=== PATIENT | male | born 1955 | race Caucasian/White ===

== ENCOUNTER 2019-02-11 22:17 | Emergency (ER) | payer OTHER ==
[~2019-02-11] VITALS: Ht 182.9 cm; Wt 82.0 kg
[2019-02-11 23:29] LABS: ALANINE AMINOTRANSFERASE 35 U/L (12-78); ALBUMIN 4.1 G/DL (3.4-5.0); ALBUMIN/GLOBULIN RATIO 1.2 (1.1-1.5); ALKALINE PHOSPHATASE 98 IU/L (46-116); ANION GAP 11 (8-16); ASPARTATE AMINO TRANSFERASE 19 U/L (10-37); BILIRUBIN,TOTAL 0.3 MG/DL (0.1-1.0); BLOOD UREA NITROGEN 14 MG/DL (7-18); BUN/CREATININE RATIO 10.4 (5.4-32.0); CALCIUM 10.5 MG/DL (8.5-10.1); CHLORIDE 106 MMOL/L (99-107); CREATININE 1.34 MG/DL (0.60-1.10); GLUCOSE 115 MG/DL (70-104); POTASSIUM 3.5 MMOL/L (3.5-5.1); SODIUM 142 MMOL/L (135-145); TOTAL CARBON DIOXIDE 24.6 MMOL/L (24-32); TOTAL PROTEIN 7.5 G/DL (6.4-8.2); eGFR 54 ML/MIN
[2019-02-11 23:31] LABS: PARTIAL THROMBOPLASTIN TIME 29 SECONDS (22-32)
[2019-02-11] MEDS ORDERED: LISI1TAB11 PO (23:31)
[2019-02-11] MEDS ORDERED: DICL25TA2 (23:32)
[2019-02-11 23:37] LABS: BASOPHILS # (AUTO) 0.1 X10'3 (0-0.2); BASOPHILS % (AUTO) 0.9 % (0-1); EOSINOPHILS # (AUTO) 0.3 X10'3 (0-0.9); EOSINOPHILS % (AUTO) 4.9 % (0-6); HEMATOCRIT 47.1 % (42.0-52.0); HEMOGLOBIN 16.2 g/dl (14.0-17.9); LYMPHOCYTES # (AUTO) 2.2 X10'3 (1.1-4.8); LYMPHOCYTES % (AUTO) 30.9 % (21-51); MEAN CORPUSCULAR HEMOGLOBIN 29.8 PG (27.0-31.0); MEAN CORPUSCULAR HGB CONC 34.5 g/dL (33.0-36.5); MEAN CORPUSCULAR VOLUME 86.5 FL (78-98); MEAN PLATELET VOLUME 8.5 FL (7.4-10.4); MONOCYTES # (AUTO) 0.6 X10'3 (0-0.9); MONOCYTES % (AUTO) 8.4 % (2-12); NEUTROPHILS # (AUTO) 3.9 X10'3 (1.8-7.7); NEUTROPHILS % (AUTO) 54.9 % (42-75); PLATELET COUNT 235 X10'3 (140-440); RED BLOOD COUNT 5.44 X10'6 (4.70-6.10); RED CELL DISTRIBUTION WIDTH 13.5 % (11.5-14.5)
--- NOTE | 2019-02-12 00:26 | NUR ---
Matthew GARCIA AT BEDSIDE. STABLE VS.
[2019-02-12] MEDS ORDERED: mag hydrox/Alum hydrox/simeth 30ml oral suspension PO ONE (00:35)
[2019-02-12] MEDS ORDERED: LIDOcaine Viscous 15ml cup PO ONE (00:35)
[2019-02-12] MEDS ORDERED: sucralfate 1 gm tablet PO ONE (00:35)
[2019-02-12] MEDS ORDERED: famotidine 20mg tablet PO ONE (00:35)
[2019-02-12 01:14] VITALS: BP 109/86
== END 2019-02-12 01:18 | disposition home or self-care (01) ==
LOC: ER 22:17
DX: R07.89 Other chest pain (principal); I10 Essential (primary) hypertension; Z79.899 Other long term (current) drug therapy
CPT/HCPCS: 36415; 71045; 80053; 84484; 85025; 85610; 85730; 93005; 99284

== ENCOUNTER 2019-02-21 07:14 | Outpatient (CLI) | payer OTHER ==
[~2019-02-21 07:14] MED LIST: DICL25TA2; LISI1TAB11 PO
[2019-02-21 07:55] LABS: ALANINE AMINOTRANSFERASE 34 U/L (12-78); ALBUMIN 4.2 G/DL (3.4-5.0); ALBUMIN/GLOBULIN RATIO 1.3 (1.1-1.5); ALKALINE PHOSPHATASE 83 IU/L (46-116); ANION GAP 8 (8-16); ASPARTATE AMINO TRANSFERASE 18 U/L (10-37); BILIRUBIN,TOTAL 0.6 MG/DL (0.1-1.0); BLOOD UREA NITROGEN 11 MG/DL (7-18); BUN/CREATININE RATIO 11.7 (5.4-32.0); CALCIUM 10.3 MG/DL (8.5-10.1); CHLORIDE 105 MMOL/L (99-107); CHOL/HDL RATIO 3.3 (0.00-4.99); CHOLESTEROL 189 MG/DL (0-200); CREATININE 0.94 MG/DL (0.60-1.10); GLUCOSE 101 MG/DL (70-104); HDL CHOLESTEROL 57 MG/DL (35-60); LDL CHOLESTEROL 115 MG/DL (50-100); POTASSIUM 3.8 MMOL/L (3.5-5.1); SODIUM 142 MMOL/L (135-145); TOTAL CARBON DIOXIDE 29.5 MMOL/L (24-32); TOTAL PROTEIN 7.5 G/DL (6.4-8.2); TRIGLYCERIDES 102 MG/DL (20-135); eGFR 81 ML/MIN
== END 2019-02-21 23:59 | disposition home or self-care (01) ==
LOC: LAB 07:14
PROVIDERS: ATTEND Family Medicine
DX: Z12.5 Encounter for screening for malignant neoplasm of prostate (principal); E78.5 Hyperlipidemia, unspecified; I10 Essential (primary) hypertension; Z87.891 Personal history of nicotine dependence
CPT/HCPCS: 36415; 80053; 80061; 84153

== ENCOUNTER 2021-01-13 11:23 | Emergency (ER) | payer BC, OTHER ==
[~2021-01-13] VITALS: Ht 182.9 cm; Wt 84.5 kg
[~2021-01-13 11:23] MED LIST changes: -LISI1TAB11 PO; +LISI1TAB51 PO
[2021-01-13 12:03] LABS: BASOPHILS # (AUTO) 0.1 X10'3 (0-0.2); BASOPHILS % (AUTO) 0.7 % (0-1); EOSINOPHILS # (AUTO) 0.5 X10'3 (0-0.9); EOSINOPHILS % (AUTO) 6.3 % (0-6); HEMATOCRIT 42.8 % (42.0-52.0); HEMOGLOBIN 14.6 g/dl (14.0-17.9); LYMPHOCYTES # (AUTO) 2.2 X10'3 (1.1-4.8); LYMPHOCYTES % (AUTO) 28.6 % (21-51); MEAN CORPUSCULAR HEMOGLOBIN 30.1 PG (27.0-31.0); MEAN CORPUSCULAR HGB CONC 34.2 g/dL (33.0-36.5); MEAN CORPUSCULAR VOLUME 87.9 FL (78-98); MONOCYTES # (AUTO) 0.7 X10'3 (0-0.9); MONOCYTES % (AUTO) 8.4 % (2-12); NEUTROPHILS # (AUTO) 4.4 X10'3 (1.8-7.7); PLATELET COUNT 239 X10'3 (140-440); RED BLOOD COUNT 4.87 X10'6 (4.70-6.10); RED CELL DISTRIBUTION WIDTH 13.6 % (11.5-14.5); WHITE BLOOD COUNT 7.8 X10'3 (4.5-11.0)
[2021-01-13] MEDS ORDERED: normal saline 1000ML IV soln IVB ONE (12:05)
[2021-01-13] MEDS ORDERED: magnesium 2GM in 50ml NS 50 ML IV ONE (12:05)
[2021-01-13] MEDS ORDERED: diltiazem 5mg/ml 5ml inj. IV ONE (12:05)
[2021-01-13 12:20] LABS: ALANINE AMINOTRANSFERASE 41 U/L (12-78); ALBUMIN/GLOBULIN RATIO 1.2 (1.1-1.5); ALKALINE PHOSPHATASE 73 IU/L (46-116); ANION GAP 10 (8-16); ASPARTATE AMINO TRANSFERASE 25 U/L (10-37); BILIRUBIN,TOTAL 0.5 MG/DL (0.1-1.0); BLOOD UREA NITROGEN 16 MG/DL (7-18); BUN/CREATININE RATIO 15.4 (5.4-32.0); CALCIUM 10.2 MG/DL (8.5-10.1); CHLORIDE 106 MMOL/L (99-107); CREATININE 1.04 MG/DL (0.60-1.10); GLUCOSE 109 MG/DL (70-104); POTASSIUM 3.8 MMOL/L (3.5-5.1); SODIUM 142 MMOL/L (135-145); TOTAL CARBON DIOXIDE 25.6 MMOL/L (24-32); TOTAL PROTEIN 7.3 G/DL (6.4-8.2); eGFR 72 ML/MIN
[2021-01-13] MEDS ORDERED: metoprolol succinate 25mg (24-HOUR) SR. Tablet PO STA (13:12)
[2021-01-13 13:18] LABS: MAGNESIUM 2.3 MG/DL (1.5-2.4)
[2021-01-13 15:52] VITALS: BP 127/95
== END 2021-01-13 15:53 | disposition home or self-care (01) ==
LOC: ER 11:24
DX: I48.0 Paroxysmal atrial fibrillation (principal); R00.2 Palpitations; R42 Dizziness and giddiness; R11.0 Nausea; I10 Essential (primary) hypertension; Z79.899 Other long term (current) drug therapy
CPT/HCPCS: 36415; 71045; 80053; 83735; 83880; 84443; 84484; 85025; 93005; 96365; 96366; 96375; 99285; J3475; J7030; J3490

== ENCOUNTER 2021-01-17 14:49 | Emergency (ER) | payer BC ==
[~2021-01-17] VITALS: Ht 182.9 cm; Wt 56.0 kg
[2021-01-17 15:53] LABS: BASOPHILS # (AUTO) 0.1 X10'3 (0-0.2); BASOPHILS % (AUTO) 1.1 % (0-1); EOSINOPHILS # (AUTO) 0.5 X10'3 (0-0.9); EOSINOPHILS % (AUTO) 7.1 % (0-6); HEMATOCRIT 42.9 % (42.0-52.0); HEMOGLOBIN 14.5 g/dl (14.0-17.9); LYMPHOCYTES # (AUTO) 1.9 X10'3 (1.1-4.8); LYMPHOCYTES % (AUTO) 28.5 % (21-51); MEAN CORPUSCULAR HEMOGLOBIN 30.1 PG (27.0-31.0); MEAN CORPUSCULAR HGB CONC 33.8 g/dL (33.0-36.5); MEAN PLATELET VOLUME 7.9 FL (7.4-10.4); MONOCYTES # (AUTO) 0.6 X10'3 (0-0.9); MONOCYTES % (AUTO) 8.5 % (2-12); NEUTROPHILS # (AUTO) 3.6 X10'3 (1.8-7.7); NEUTROPHILS % (AUTO) 54.8 % (42-75); PLATELET COUNT 232 X10'3 (140-440); RED BLOOD COUNT 4.82 X10'6 (4.70-6.10); WHITE BLOOD COUNT 6.6 X10'3 (4.5-11.0)
[2021-01-17 16:17] LABS: ALANINE AMINOTRANSFERASE 36 U/L (12-78); ALBUMIN 3.9 G/DL (3.4-5.0); ALBUMIN/GLOBULIN RATIO 1.1 (1.1-1.5); ALKALINE PHOSPHATASE 81 IU/L (46-116); ANION GAP 9 (8-16); ASPARTATE AMINO TRANSFERASE 18 U/L (10-37); BILIRUBIN,TOTAL 0.4 MG/DL (0.1-1.0); BLOOD UREA NITROGEN 16 MG/DL (7-18); BUN/CREATININE RATIO 16.5 (5.4-32.0); CHLORIDE 108 MMOL/L (99-107); CREATININE 0.97 MG/DL (0.60-1.10); GLUCOSE 107 MG/DL (70-104); POTASSIUM 4.3 MMOL/L (3.5-5.1); SODIUM 144 MMOL/L (135-145); TOTAL CARBON DIOXIDE 27.3 MMOL/L (24-32); TOTAL PROTEIN 7.3 G/DL (6.4-8.2); eGFR 78 ML/MIN
[2021-01-17 16:33] VITALS: BP 132/70
== END 2021-01-17 16:34 | disposition home or self-care (01) ==
LOC: ER 14:49
DX: I48.0 Paroxysmal atrial fibrillation (principal); I10 Essential (primary) hypertension; Z79.899 Other long term (current) drug therapy
CPT/HCPCS: 36415; 71045; 80053; 84484; 85025; 93005; 99285

== ENCOUNTER 2021-01-21 08:27 | Outpatient (CLI) | payer BC ==
[2021-01-21 08:59] LABS: BASOPHILS # (AUTO) 0.1 X10'3 (0-0.2); BASOPHILS % (AUTO) 1.5 % (0-1); EOSINOPHILS # (AUTO) 0.5 X10'3 (0-0.9); EOSINOPHILS % (AUTO) 8.1 % (0-6); HEMATOCRIT 41.9 % (42.0-52.0); HEMOGLOBIN 14.2 g/dl (14.0-17.9); LYMPHOCYTES # (AUTO) 1.7 X10'3 (1.1-4.8); LYMPHOCYTES % (AUTO) 29.3 % (21-51); MEAN CORPUSCULAR HEMOGLOBIN 30.1 PG (27.0-31.0); MEAN CORPUSCULAR HGB CONC 33.9 g/dL (33.0-36.5); MEAN CORPUSCULAR VOLUME 88.8 FL (78-98); MEAN PLATELET VOLUME 7.8 FL (7.4-10.4); MONOCYTES # (AUTO) 0.6 X10'3 (0-0.9); MONOCYTES % (AUTO) 10.8 % (2-12); NEUTROPHILS # (AUTO) 2.9 X10'3 (1.8-7.7); NEUTROPHILS % (AUTO) 50.3 % (42-75); PLATELET COUNT 218 X10'3 (140-440); RED BLOOD COUNT 4.72 X10'6 (4.70-6.10); RED CELL DISTRIBUTION WIDTH 13.9 % (11.5-14.5); WHITE BLOOD COUNT 5.8 X10'3 (4.5-11.0)
[2021-01-21 09:14] LABS: CLARITY,URINE CLEAR (Clear); COLOR,URINE YELLOW (Yellow); GLUCOSE, URINE NEGATIVE (Neg); KETONES,URINE NEGATIVE (Neg); LEUKOCYTE ESTERASE ,URINE NEGATIVE (Neg); NITRITES, URINE NEGATIVE (Neg); OCCULT BLOOD,URINE NEGATIVE (Neg); PROTEIN,URINE NEGATIVE (Neg); UROBILINOGEN,URINE 0.2 E.U/dL (0.2-1.0)
[2021-01-21 09:19] LABS: UA COLLECTION TYPE CLN CATCH MIDSTREAM
[2021-01-21 09:23] LABS: ALANINE AMINOTRANSFERASE 40 U/L (12-78); ALBUMIN/GLOBULIN RATIO 1.2 (1.1-1.5); ALKALINE PHOSPHATASE 67 IU/L (46-116); ANION GAP 9 (8-16); ASPARTATE AMINO TRANSFERASE 22 U/L (10-37); BILIRUBIN,TOTAL 0.5 MG/DL (0.1-1.0); BLOOD UREA NITROGEN 15 MG/DL (7-18); CALCIUM 10.5 MG/DL (8.5-10.1); CHLORIDE 105 MMOL/L (99-107); CHOL/HDL RATIO 4.1 (0.00-4.99); CHOLESTEROL 210 MG/DL (0-200); GLUCOSE 85 MG/DL (70-104); HDL CHOLESTEROL 51 MG/DL (35-60); LDL CHOLESTEROL 140 MG/DL (50-100); POTASSIUM 4.3 MMOL/L (3.5-5.1); SODIUM 142 MMOL/L (135-145); TOTAL CARBON DIOXIDE 28.3 MMOL/L (24-32); TOTAL PROTEIN 7.3 G/DL (6.4-8.2); TRIGLYCERIDES 147 MG/DL (20-135); eGFR 75 ML/MIN
[2021-01-22 13:41] LABS: MICROALB/CRT, RATIO <11 mg/g creat (0-29)
== END 2021-01-21 23:59 | disposition home or self-care (01) ==
LOC: LAB 08:27
PROVIDERS: ATTEND Family Medicine
DX: Z00.01 Encounter for general adult medical examination with abnormal findings (principal)
CPT/HCPCS: 36415; 80053; 80061; 81003; 82043; 82570; 84439; 84443; 85025

== ENCOUNTER 2021-02-16 10:36 | Outpatient (CLI) | payer BC | END 2021-02-16 23:59 | disposition home or self-care (01) | LOC: CARD DIAG 10:36 | PROVIDERS: ATTEND Nurse Practitioner Family | DX: I36.1 Nonrheumatic tricuspid (valve) insufficiency (principal); I48.91 Unspecified atrial fibrillation | CPT/HCPCS: 93306 ==

== ENCOUNTER 2021-03-08 07:42 | Outpatient (CLI) | payer BC ==
[2021-03-08] VITALS (7 sets, daily range): BP systolic 109–125; BP diastolic 69–81
[~2021-03-08] VITALS: Ht 182.9 cm; Wt 86.2 kg
[2021-03-08] MEDS ORDERED: regadenoson 0.4mg/5ml syringe IV ONE (08:40)
[2021-03-08] MEDS ORDERED: nitroGLYCERIN 0.4mg SUBLingual tab SL PRN (08:40)
[2021-03-08] MEDS ORDERED: normal saline 500ml IV soln 500 ML IV ONE (08:40)
[2021-03-08] MEDS ORDERED: aminophylline 250mg/10ml inj. IV PRN (08:40)
== END 2021-03-08 23:59 | disposition home or self-care (01) ==
LOC: RAD 07:42
PROVIDERS: ATTEND Internal Medicine Interventional Cardiology
DX: I48.91 Unspecified atrial fibrillation (principal)
CPT/HCPCS: 78452; 93017; A9500; J2785; J7040

== ENCOUNTER 2021-05-25 07:25 | Outpatient (CLI) | payer BC ==
[2021-05-25 09:04] LABS: CHOL/HDL RATIO 3.9 (0.00-4.99); CHOLESTEROL 189 MG/DL (0-200); HDL CHOLESTEROL 49 MG/DL (35-60); LDL CHOLESTEROL 118 MG/DL (50-100); TRIGLYCERIDES 96 MG/DL (20-135)
== END 2021-05-25 23:59 | disposition home or self-care (01) ==
LOC: LAB 07:25
PROVIDERS: ATTEND Family Medicine
DX: E78.5 Hyperlipidemia, unspecified (principal)
CPT/HCPCS: 36415; 80061

== ENCOUNTER 2021-12-09 10:58 | Outpatient (CLI) | payer BC ==
[2021-12-09 12:10] LABS: BASOPHILS # (AUTO) 0.1 X10'3 (0-0.2); BASOPHILS % (AUTO) 0.8 % (0-1); EOSINOPHILS # (AUTO) 0.3 X10'3 (0-0.9); EOSINOPHILS % (AUTO) 4.2 % (0-6); HEMATOCRIT 43.6 % (42.0-52.0); HEMOGLOBIN 14.8 g/dl (14.0-17.9); LYMPHOCYTES # (AUTO) 1.8 X10'3 (1.1-4.8); LYMPHOCYTES % (AUTO) 23.8 % (21-51); MEAN CORPUSCULAR HEMOGLOBIN 29.9 PG (27.0-31.0); MEAN CORPUSCULAR HGB CONC 33.8 g/dL (33.0-36.5); MEAN CORPUSCULAR VOLUME 88.3 FL (78-98); MEAN PLATELET VOLUME 8.3 FL (7.4-10.4); MONOCYTES # (AUTO) 0.8 X10'3 (0-0.9); MONOCYTES % (AUTO) 10.2 % (2-12); NEUTROPHILS # (AUTO) 4.7 X10'3 (1.8-7.7); PLATELET COUNT 253 X10'3 (140-440); RED BLOOD COUNT 4.94 X10'6 (4.70-6.10); RED CELL DISTRIBUTION WIDTH 13.8 % (11.5-14.5); WHITE BLOOD COUNT 7.6 X10'3 (4.5-11.0)
[2021-12-09 12:27] LABS: ALANINE AMINOTRANSFERASE 44 U/L (12-78); ALBUMIN 3.9 G/DL (3.4-5.0); ALBUMIN/GLOBULIN RATIO 1.2 (1.1-1.5); ALKALINE PHOSPHATASE 77 IU/L (46-116); ANION GAP 7 (8-16); ASPARTATE AMINO TRANSFERASE 25 U/L (10-37); BILIRUBIN,TOTAL 0.4 MG/DL (0.1-1.0); BLOOD UREA NITROGEN 13 MG/DL (7-18); CHLORIDE 105 MMOL/L (99-107); CHOL/HDL RATIO 4.2 (0.00-4.99); CHOLESTEROL 179 MG/DL (0-200); GLUCOSE 96 MG/DL (70-104); HDL CHOLESTEROL 43 MG/DL (35-60); LDL CHOLESTEROL 108 MG/DL (50-100); POTASSIUM 4.1 MMOL/L (3.5-5.1); SODIUM 140 MMOL/L (135-145); TOTAL CARBON DIOXIDE 28.2 MMOL/L (24-32); TOTAL PROTEIN 7.2 G/DL (6.4-8.2); TRIGLYCERIDES 196 MG/DL (20-135); eGFR 75 ML/MIN
[2021-12-09 12:45] LABS: CLARITY,URINE CLOUDY (Clear); COLOR,URINE YELLOW (Yellow); GLUCOSE, URINE NEGATIVE (Neg); KETONES,URINE NEGATIVE (Neg); LEUKOCYTE ESTERASE ,URINE NEGATIVE (Neg); NITRITES, URINE NEGATIVE (Neg); OCCULT BLOOD,URINE NEGATIVE (Neg); PROTEIN,URINE NEGATIVE (Neg); UROBILINOGEN,URINE 0.2 E.U/dL (0.2-1.0)
[2021-12-09 13:00] LABS: UA COLLECTION TYPE NON-SPECIFIED
[2021-12-09 13:31] LABS: SQUAMOUS EPITHELIAL CELL,UR FEW /LPF (FEW)
[2021-12-09 13:34] LABS: RBC,URINE 0-2 /HPF (0-2); WBC,URINE 0-4 /HPF (0-4)
[2021-12-09 13:35] LABS: AMORPHOUS PHOSPHATES 4+
[2021-12-09 13:37] LABS: BACTERIA,URINE FEW /HPF (Neg)
== END 2021-12-09 23:59 | disposition home or self-care (01) ==
LOC: LAB 10:58
PROVIDERS: ATTEND Family Medicine
DX: E78.5 Hyperlipidemia, unspecified (principal); I10 Essential (primary) hypertension
CPT/HCPCS: 36415; 80053; 80061; 81001; 84439; 84443; 85025

== ENCOUNTER 2022-03-30 07:52 | Outpatient (CLI) | payer BC | END 2022-03-30 23:59 | disposition home or self-care (01) | LOC: RAD 07:52 | PROVIDERS: ATTEND Family Medicine | DX: M51.36 Other intervertebral disc degeneration, lumbar region (principal); M48.03 Spinal stenosis, cervicothoracic region; M25.78 Osteophyte, vertebrae; M47.813 Spondylosis without myelopathy or radiculopathy, cervicothoracic region; M41.82 Other forms of scoliosis, cervical region | CPT/HCPCS: 72141; 72148 ==

== ENCOUNTER 2022-04-12 09:10 | Outpatient (CLI) | payer BC | END 2022-04-12 23:59 | disposition home or self-care (01) | LOC: RAD 09:10 | PROVIDERS: ATTEND Family Medicine | DX: M47.816 Spondylosis without myelopathy or radiculopathy, lumbar region (principal); M43.16 Spondylolisthesis, lumbar region; M48.07 Spinal stenosis, lumbosacral region; M46.1 Sacroiliitis, not elsewhere classified | CPT/HCPCS: 72131 ==

== ENCOUNTER 2022-04-21 10:41 | Outpatient (CLI) | payer BC | END 2022-04-21 23:59 | disposition home or self-care (01) | LOC: RAD 10:41 | PROVIDERS: ATTEND Family Medicine | DX: I70.0 Atherosclerosis of aorta (principal); R06.89 Other abnormalities of breathing; J30.2 Other seasonal allergic rhinitis | CPT/HCPCS: 71046 ==

== ENCOUNTER 2022-10-12 10:36 | Outpatient (CLI) | payer BC | END 2022-10-12 23:59 | disposition home or self-care (01) | LOC: RAD 10:36 | PROVIDERS: ATTEND Otolaryngology | DX: J32.0 Chronic maxillary sinusitis (principal); I15.9 Secondary hypertension, unspecified | CPT/HCPCS: 93005 ==

== ENCOUNTER 2022-10-31 06:05 | Day surgery (SDC) | payer BC ==
[2022-10-17 10:37] LABS: BASOPHILS % (AUTO) 0.6 % (0-1); EOSINOPHILS # (AUTO) 0.4 X10'3 (0-0.9); EOSINOPHILS % (AUTO) 5.3 % (0-6); HEMATOCRIT 45.2 % (42.0-52.0); HEMOGLOBIN 15.3 g/dl (14.0-17.9); LYMPHOCYTES # (AUTO) 1.5 X10'3 (1.1-4.8); LYMPHOCYTES % (AUTO) 22.7 % (21-51); MEAN CORPUSCULAR HEMOGLOBIN 30.3 PG (27.0-31.0); MEAN CORPUSCULAR HGB CONC 33.8 g/dL (33.0-36.5); MEAN CORPUSCULAR VOLUME 89.5 FL (78-98); MEAN PLATELET VOLUME 8.1 FL (7.4-10.4); MONOCYTES # (AUTO) 0.7 X10'3 (0-0.9); NEUTROPHILS # (AUTO) 4.1 X10'3 (1.8-7.7); NEUTROPHILS % (AUTO) 61.4 % (42-75); PLATELET COUNT 212 X10'3 (140-440); RED BLOOD COUNT 5.05 X10'6 (4.70-6.10); RED CELL DISTRIBUTION WIDTH 13.8 % (11.5-14.5); WHITE BLOOD COUNT 6.6 X10'3 (4.5-11.0)
[2022-10-17 10:43] LABS: APTT 27 SECONDS (22-32)
[2022-10-17 10:45] LABS: ALANINE AMINOTRANSFERASE 46 U/L (12-78); ALBUMIN 3.9 G/DL (3.4-5.0); ALBUMIN/GLOBULIN RATIO 1.1 (1.1-1.5); ALKALINE PHOSPHATASE 81 IU/L (46-116); ANION GAP 5 (8-16); ASPARTATE AMINO TRANSFERASE 23 U/L (10-37); BILIRUBIN,TOTAL 0.5 MG/DL (0.1-1.0); BLOOD UREA NITROGEN 13 MG/DL (7-18); CALCIUM 10.2 MG/DL (8.5-10.1); CHLORIDE 104 MMOL/L (99-107); GLUCOSE 92 MG/DL (70-104); POTASSIUM 3.9 MMOL/L (3.5-5.1); SODIUM 138 MMOL/L (135-145); TOTAL CARBON DIOXIDE 28.6 MMOL/L (24-32); TOTAL PROTEIN 7.3 G/DL (6.4-8.2); eGFR 75 ML/MIN
[2022-10-31] VITALS (8 sets, daily range): BP systolic 137–149; BP diastolic 92–102
[~2022-10-31] VITALS: Ht 182.9 cm; Wt 86.2 kg
[~2022-10-31 06:05] MED LIST changes: -DICL25TA2; +DICL25TA2 PO; +FLUT16SP2 BOTHNARES; -LISI1TAB51 PO; +OLME-38 PO; +famotidine 20mg tablet PO ONE; +oxymetazoline 15 ML nasal spray NS PRN; +ringers solution, lacted 1,000 ML IV SCH; +tranexamic acid inj. 1,000 MG in normal saline IV soln 100ML IV ONE
[2022-10-31] MEDS ORDERED: oxymetazoline 15 ML nasal spray NS ONE ×2 (06:44→07:03)
[2022-10-31] MEDS ORDERED: LIDOCAINE 1%/EPI 1:100,000 inj. 10 ML multi-dose vial ONE ×2 (06:44→07:03)
[2022-10-31] MEDS ORDERED: mupirocin 2% ointment 22GM ONE (06:44)
[2022-10-31] MEDS ORDERED: cocaine 4% topical solution 4ml bottle ONE (06:44)
--- NOTE | 2022-10-31 07:22 | NUR ---
PT REPORTS "I DO NOT HAVE THE URGE TO GO TO THE BATHROOM".
[2022-10-31] MEDS ORDERED: tranexamic acid 100mg/ml inj. ONE ×2 (07:27→07:28)
[2022-10-31] MEDS ORDERED: methylPREDNISolone acetate 80mg/ml inj**IM only ONE (07:29)
[2022-10-31] MEDS ORDERED: midazolam 1 mg/ML 2ml injection ONE (07:50)
[2022-10-31] MEDS ORDERED: FENTANYL CITRATE/PF 50 MCG/1 ML VIAL ONE ×2 (07:50→09:31)
[2022-10-31] MEDS ORDERED: proCHLORperazine 10 MG/2 ml inj IV PRN (07:55)
[2022-10-31] MEDS ORDERED: ondansetron/PF 4mg/2ml inj IV PRN (07:55)
[2022-10-31] MEDS ORDERED: morphine 2 MG/ML inj. syringe IV PRN (07:55)
[2022-10-31] MEDS ORDERED: ringers solution, lacted 1,000 ML IV SCH (07:55)
[2022-10-31] MEDS ORDERED: meperidine/PF 25mg/ml syringe IV PRN ×3 (07:55)
[2022-10-31] MEDS ORDERED: morphine 4 MG/ML inj SYRINge IV PRN (07:55)
[2022-10-31] MEDS ORDERED: sevoflurane 250ml liquid IH ONE (08:09)
[2022-10-31] MEDS ORDERED: ePHEDrine 50MG/ML INJ. ONE (09:32)
[2022-10-31] MEDS ORDERED: LIDOcaine 2% (20mg/ml) 5ml vial ONE (09:32)
[2022-10-31] MEDS ORDERED: ondansetron/PF 4mg/2ml inj ONE (09:32)
[2022-10-31] MEDS ORDERED: dexamethasone sod phosphate 4mg/ml inj. ONE (09:33)
[2022-10-31] MEDS ORDERED: propofol inj 20 ML IV ONE (09:33)
--- NOTE | 2022-10-31 10:45 | NUR ---
Received from OR via [facility] , accompanied by Anesthesiologist VLAD and report given by Anesthesiolgist. PT ARRIVES DROWSY, ON NRB SPO2 100%. AWAKENS TO STIMULI, MOVING SPONTANEOUSLY. DENIES PAIN AT THIS TIME. BILATERAL NASAL GAUZE IN PLACE, WITH STRINGS TAPED TO BILATERAL CHEEK. VSS. Addendum: 10/31/22 at 1101 by Karel Rodriguez RN Amended: Links added.
--- NOTE | 2022-10-31 11:15 | NUR ---
COTTONOIDS REMOVED PER MD ORDER. NO EXCESSIVE DRAINAGE NOTED. PT COMFORTABLE. Addendum: 10/31/22 at 1134 by Karel Rodriguez RN Amended: Links added.
--- NOTE | 2022-10-31 11:34 | NUR ---
MUSTACHE DRESSING APPLIED ON PT. PT EDUCATION PROVIDED AND PT VERBALIZED UNDERSTANDING. PT DC INSTRUCTIONS PROVIDED TO PT. ALSO DC INSTRUCTIONS VERBALIZED TO PT AND EDUCATION PROVIDED IN DETAIL. PT VERBALIZED UNDERSTANDING OF HOME CARE AND FOLLOW UP PLAN OF CARE. Addendum: 10/31/22 at 1136 by Karel Rodriguez RN Amended: Links added.
[2022-10-31] MEDS ORDERED: salt irrigation nasal spray 45 ML SPRAY NS PRN (11:40)
--- NOTE | 2022-10-31 11:55 | NUR ---
PT OUT OF RR INTO CARE OF FAMILY MEMBER VIA WHEELCHAIR WITHOUT INCIDENT. NO COMPLAINTS, DENIES PAIN. IV REMOVED. MINIMAL DRAINAGE FROM NOSE. PT DID HAVE VOID/URINE PRIOR TO DC. Addendum: 10/31/22 at 1250 by Karel Rodriguez RN Amended: Links added.
--- NOTE | 2022-10-31 12:00 | NUR ---
PT'S RESPONSIBLE BACK SEAM STITCHER HAS ARRIVED. AWAITING PT VOID PRIOR TO DISCHARGE. INSTRUCTIONS AND ALL DC WORK PROVIDED TO PT. PER MD ORDERS ABX NASAL OINTMENT APPLIED, NASAL SALINE SPRAY ADMINISTERED AND TEACHING ON LAVAGE PROVIDED WITH NEEDED SUPPLIES. Addendum: 10/31/22 at 1214 by Karel Rodriguez RN Amended: Links added.
== END 2022-10-31 11:55 | disposition home or self-care (01) ==
LOC: PAS 06:05
PROVIDERS: ATTEND Otolaryngology
DX: J32.4 Chronic pansinusitis (principal); J34.2 Deviated nasal septum; J34.3 Hypertrophy of nasal turbinates; J33.8 Other polyp of sinus; I10 Essential (primary) hypertension; G47.30 Sleep apnea, unspecified; Z20.822 Contact with and (suspected) exposure to COVID-19; Z87.891 Personal history of nicotine dependence; Z79.1 Long term (current) use of non-steroidal anti-inflammatories (NSAID); Z79.899 Other long term (current) drug therapy; Z98.890 Other specified postprocedural states
CPT/HCPCS: 30140; 30520; 31253; 31259; 31267; 36415; 61782; 70486; 80053; 82948; 85025; 85610; 85730; 87635; A6402; C1726; C9250; C9803; J1040; J1100; J2250; J2405; J2704; J3010; J3490; J7030; J7040; J7120; U0003; U0005; Z7506; Z7508; Z7512; A4618; A7000

== ENCOUNTER 2023-01-22 07:17 | Outpatient (CLI) | payer BC ==
[~2023-01-22 07:17] MED LIST changes: -famotidine 20mg tablet PO ONE; -oxymetazoline 15 ML nasal spray NS PRN; -ringers solution, lacted 1,000 ML IV SCH; -tranexamic acid inj. 1,000 MG in normal saline IV soln 100ML IV ONE
[2023-01-22 08:11] LABS: ALANINE AMINOTRANSFERASE 41 U/L (12-78); ALBUMIN 4.1 G/DL (3.4-5.0); ALBUMIN/GLOBULIN RATIO 1.3 (1.1-1.5); ALKALINE PHOSPHATASE 69 IU/L (46-116); ANION GAP 6 (8-16); ASPARTATE AMINO TRANSFERASE 26 U/L (10-37); BILIRUBIN,TOTAL 0.7 MG/DL (0.1-1.0); BLOOD UREA NITROGEN 11 MG/DL (7-18); BUN/CREATININE RATIO 10.7 (5.4-32.0); CALCIUM 10.2 MG/DL (8.5-10.1); CHLORIDE 105 MMOL/L (99-107); CHOL/HDL RATIO 3.6 (0.00-4.99); CHOLESTEROL 222 MG/DL (0-200); CREATININE 1.03 MG/DL (0.60-1.10); GLUCOSE 107 MG/DL (70-104); HDL CHOLESTEROL 61 MG/DL (35-60); LDL CHOLESTEROL 146 MG/DL (50-100); POTASSIUM 4.1 MMOL/L (3.5-5.1); SODIUM 137 MMOL/L (135-145); TOTAL CARBON DIOXIDE 26.5 MMOL/L (24-32); TOTAL PROTEIN 7.3 G/DL (6.4-8.2); TRIGLYCERIDES 138 MG/DL (20-135); eGFR 72 ML/MIN
[2023-01-22 08:20] LABS: HEMOGLOBIN A1C 5.7 % (4.5-6.2)
[2023-01-23 09:16] LABS: PSA, FREE 0.55 ng/mL
== END 2023-01-22 23:59 | disposition home or self-care (01) ==
LOC: LAB 07:17
PROVIDERS: ATTEND Internal Medicine Interventional Cardiology
DX: I48.91 Unspecified atrial fibrillation (principal); E78.5 Hyperlipidemia, unspecified; R03.0 Elevated blood-pressure reading, without diagnosis of hypertension; F17.211 Nicotine dependence, cigarettes, in remission
CPT/HCPCS: 36415; 80053; 80061; 83036; 84153; 84154

== ENCOUNTER 2023-09-20 07:12 | Outpatient (CLI) | payer BC ==
[2023-09-20 08:28] LABS: BASOPHILS % (AUTO) 0.3 % (0-1); EOSINOPHILS # (AUTO) 0.2 X10'3 (0-0.9); EOSINOPHILS % (AUTO) 2.6 % (0-6); HEMATOCRIT 47.8 % (42.0-52.0); LYMPHOCYTES # (AUTO) 1.5 X10'3 (1.1-4.8); LYMPHOCYTES % (AUTO) 22.6 % (21-51); MEAN CORPUSCULAR HEMOGLOBIN 29.5 PG (27.0-31.0); MEAN CORPUSCULAR HGB CONC 33.5 g/dL (33.0-36.5); MEAN CORPUSCULAR VOLUME 88.2 FL (78-98); MEAN PLATELET VOLUME 8.2 FL (7.4-10.4); MONOCYTES # (AUTO) 0.5 X10'3 (0-0.9); MONOCYTES % (AUTO) 7.8 % (2-12); NEUTROPHILS # (AUTO) 4.3 X10'3 (1.8-7.7); NEUTROPHILS % (AUTO) 66.7 % (42-75); PLATELET COUNT 247 X10'3 (140-440); RED BLOOD COUNT 5.42 X10'6 (4.70-6.10); RED CELL DISTRIBUTION WIDTH 13.5 % (11.5-14.5); WHITE BLOOD COUNT 6.4 X10'3 (4.5-11.0)
[2023-09-20 08:47] LABS: BILIRUBIN,URINE NEGATIVE (Neg); CLARITY,URINE CLEAR (Clear); COLOR,URINE YELLOW (Yellow); GLUCOSE, URINE NEGATIVE (Neg); KETONES,URINE NEGATIVE (Neg); LEUKOCYTE ESTERASE ,URINE TRACE (Neg); NITRITES, URINE NEGATIVE (Neg); OCCULT BLOOD,URINE TRACE-INTACT (Neg); PROTEIN,URINE NEGATIVE (Neg); UROBILINOGEN,URINE 0.2 E.U/dL (0.2-1.0)
[2023-09-20 08:47] LABS: HEMOGLOBIN A1C 5.9 % (4.5-6.2)
[2023-09-20 08:49] LABS: ALANINE AMINOTRANSFERASE 48 U/L (12-78); ALBUMIN 4.1 G/DL (3.4-5.0); ALBUMIN/GLOBULIN RATIO 1.2 (1.1-1.5); ALKALINE PHOSPHATASE 88 IU/L (46-116); ANION GAP 7 (8-16); ASPARTATE AMINO TRANSFERASE 19 U/L (10-37); BILIRUBIN,TOTAL 0.5 MG/DL (0.1-1.0); BLOOD UREA NITROGEN 11 MG/DL (7-18); BUN/CREATININE RATIO 11.7 (10.0-20.0); CALCIUM 10.4 MG/DL (8.5-10.1); CHLORIDE 103 MMOL/L (99-107); CHOL/HDL RATIO 2.5 (0.00-4.99); CHOLESTEROL 140 MG/DL (0-200); CREATININE 0.94 MG/DL (0.60-1.10); GLUCOSE 101 MG/DL (70-104); HDL CHOLESTEROL 57 MG/DL (35-60); LDL CHOLESTEROL 63 MG/DL (50-100); POTASSIUM 3.9 MMOL/L (3.5-5.1); SODIUM 137 MMOL/L (135-145); THYROID STIMULATING HORMONE 1.94 ulU/ml (0.34-4.50); TOTAL CARBON DIOXIDE 27.3 MMOL/L (24-32); TOTAL PROTEIN 7.6 G/DL (6.4-8.2); TRIGLYCERIDES 104 MG/DL (20-135); eGFR 80 ML/MIN
[2023-09-20 08:50] LABS: UA COLLECTION TYPE NON-SPECIFIED
[2023-09-20 09:10] LABS: SQUAMOUS EPITHELIAL CELL,UR FEW /LPF (FEW)
[2023-09-20 09:11] LABS: BACTERIA,URINE NONE SEEN /HPF (Neg); RBC,URINE 0-2 /HPF (0-2); WBC,URINE 0-4 /HPF (0-4)
[2023-09-21 10:23] LABS: FOLATE SERUM(FOLIC) 9.3 ng/mL (>3.0); PSA, FREE 0.67 ng/mL
== END 2023-09-20 23:59 | disposition home or self-care (01) ==
LOC: LAB 07:12
PROVIDERS: ATTEND Registered Nurse
DX: Z00.00 Encounter for general adult medical examination without abnormal findings (principal); B07.0 Plantar wart
CPT/HCPCS: 36415; 80053; 80061; 81001; 82306; 82607; 82746; 83036; 84153; 84154; 84443; 85025

== ENCOUNTER 2023-11-16 08:52 | Outpatient (CLI) | payer BC | END 2023-11-16 23:59 | disposition home or self-care (01) | LOC: VAS 08:52 | PROVIDERS: ATTEND Radiology Vascular & Interventional Radiology | DX: I83.812 Varicose veins of left lower extremity with pain (principal) | CPT/HCPCS: 93971 ==

== ENCOUNTER 2024-09-04 05:27 | Inpatient (IN) | payer MEDICARE ==
[2024-08-27 10:40] LABS: BILIRUBIN,URINE NEGATIVE (Neg); CLARITY,URINE CLEAR (Clear); COLOR,URINE YELLOW (Yellow); GLUCOSE, URINE NEGATIVE (Neg); KETONES,URINE NEGATIVE (Neg); LEUKOCYTE ESTERASE ,URINE NEGATIVE (Neg); NITRITES, URINE NEGATIVE (Neg); OCCULT BLOOD,URINE NEGATIVE (Neg); PH,URINE 6.5 (4.8-8.0); PROTEIN,URINE NEGATIVE (Neg); UROBILINOGEN,URINE 0.2 E.U/dL (0.2-1.0)
[2024-08-27 10:45] LABS: UA COLLECTION TYPE CLN CATCH MIDSTREAM
[2024-08-27 10:46] LABS: BASOPHILS # (AUTO) 0.1 X10'3 (0-0.2); BASOPHILS % (AUTO) 0.9 % (0-1); EOSINOPHILS # (AUTO) 0.3 X10'3 (0-0.9); EOSINOPHILS % (AUTO) 4.6 % (0-6); LYMPHOCYTES # (AUTO) 1.2 X10'3 (1.1-4.8); LYMPHOCYTES % (AUTO) 20.3 % (21-51); MEAN CORPUSCULAR HEMOGLOBIN 30.2 PG (27.0-31.0); MEAN CORPUSCULAR HGB CONC 33.9 g/dL (33.0-36.5); MEAN CORPUSCULAR VOLUME 89.1 FL (78-98); MONOCYTES # (AUTO) 0.6 X10'3 (0-0.9); MONOCYTES % (AUTO) 9.6 % (2-12); NEUTROPHILS # (AUTO) 3.8 X10'3 (1.8-7.7); NEUTROPHILS % (AUTO) 64.6 % (42-75); PRE OP HEMATOCRIT 43.1 % (42.0-52.0); PRE OP HEMOGLOBIN 14.6 g/dL (14.0-17.9); PRE OP PLATELET COUNT 213 X10'3 (140-440); PRE OP WHITE BLOOD COUNT 5.8 10'3 (4.8-10.8); RED BLOOD COUNT 4.84 X10'6 (4.70-6.10); RED CELL DISTRIBUTION WIDTH 13.7 % (11.5-14.5)
[2024-08-27 11:00] LABS: PRE OP PROTIME 10.7 SECONDS (9.0-12.0)
[2024-08-27 11:02] LABS: ALBUMIN 3.7 G/DL (3.4-5.0); ALBUMIN/GLOBULIN RATIO 1.1 (1.1-1.5); ALKALINE PHOSPHATASE 74 IU/L (46-116); BLOOD UREA NITROGEN 18 MG/DL (7-18); BUN/CREATININE RATIO 20.5 (10.0-20.0); CHLORIDE 104 MMOL/L (99-107); CREATININE 0.88 MG/DL (0.60-1.10); PRE OP ALT 54 U/L (30-65); PRE OP ANION GAP 6 (8-16); PRE OP AST 44 U/L (10-37); PRE OP BILIRUB, TOTAL 0.4 MG/DL (0.0-1.0); PRE OP GLUCOSE 98 MG/DL (70-104); PRE OP POTASSIUM 4.1 MMOL/L (3.4-5.1); PRE OP SODIUM 138 MMOL/L (135-145); TOTAL CARBON DIOXIDE 27.8 MMOL/L (24-32); TOTAL PROTEIN 7.1 G/DL (6.4-8.2); eGFR 86 ML/MIN
[2024-09-04] VITALS (33 sets, daily range): BP systolic 99–143; BP diastolic 63–96; PULSE 61–88; RESP 12–17; TEMP 97.9–98.6; O2SAT 92–100
[~2024-09-04] VITALS: Ht 182.9 cm; Wt 86.2 kg
[~2024-09-04 05:27] MED LIST changes: +ASPI81TA52 PO; +CLOP-32 PO; -DICL25TA2 PO; +ROSU20TA73 PO; +TRAM50TA2 PO
[2024-09-04] MEDS ORDERED: ondansetron/PF 4mg/2ml inj IV PRN ×3 (05:30→08:25)
[2024-09-04] MEDS: famotidine 20mg tablet PO ONE (06:15)
[2024-09-04] MEDS: ringers solution, lacted 1,000 ML IV SCH ×2 (06:16→07:05)
[2024-09-04] MEDS: vancomycin 1,500 MG in NS 300ml IV soln IV ONE (06:16)
[2024-09-04] MEDS: cefazolin 2gm/D5W 100mL 100 ML IV ONE (06:17)
[2024-09-04] MEDS ORDERED: iohexol 350 MG/ML 50ML vial IV ONE ×2 (06:42→11:28)
[2024-09-04] MEDS ORDERED: fentaNYL/PF 50MCG/1 ML 2ML syringe ONE (07:00)
[2024-09-04] MEDS ORDERED: midazolam 1 mg/ML 2ml injection ONE (07:02)
[2024-09-04] MEDS ORDERED: meperidine/PF 25mg/ml syringe IV PRN ×2 (07:05)
[2024-09-04] MEDS ORDERED: labetalol 20mg/4ml (5mg/ml) syringe IV PRN ×2 (07:05→08:25)
[2024-09-04] MEDS ORDERED: morphine 2 MG/ML inj. syringe IV PRN (07:05)
[2024-09-04] MEDS ORDERED: hydrALAZINE 20mg/ml inj. IV PRN ×2 (07:05→08:25)
[2024-09-04] MEDS ORDERED: proCHLORperazine 10 MG/2 ml inj IV PRN ×2 (07:05→08:25)
[2024-09-04] MEDS ORDERED: morphine 4 MG/ML inj SYRINge IV PRN (07:05)
[2024-09-04] MEDS ORDERED: sevoflurane 250ml liquid IH ONE (07:08)
[2024-09-04] MEDS ORDERED: LIDOcaine 2% (20mg/ml) 5ml vial ONE (07:44)
[2024-09-04] MEDS ORDERED: propofol inj 20 ML IV ONE (07:44)
[2024-09-04] MEDS ORDERED: heparin 1,000unit/ml 10ml vial 10 ML ONE (07:45)
[2024-09-04] MEDS ORDERED: dexamethasone sod phosphate 4mg/ml inj. ONE (07:46)
[2024-09-04] MEDS ORDERED: ondansetron/PF 4mg/2ml inj ONE (07:46)
[2024-09-04] MEDS ORDERED: potassium CL 10mEq/100ml bag 100 ML IV PRN (08:25)
[2024-09-04] MEDS ORDERED: HYDROcodone/acetaminophen 5mg/325mg tablet PO PRN (08:25)
[2024-09-04] MEDS ORDERED: potassium Cl 20 mEq SR tablet PO PRN (08:25)
[2024-09-04] MEDS ORDERED: magnesium sulf-water 4G/100mL 100 ML IV PRN (08:25)
[2024-09-04] MEDS ORDERED: potassium Cl 40MEQ/1/2NS 520ml 520 ML IV PRN (08:25)
[2024-09-04] MEDS ORDERED: docusate sod 100mg capsule PO PRN (08:25)
[2024-09-04] MEDS ORDERED: acetaminophen 325mg tablet PO PRN (08:25)
[2024-09-04] MEDS ORDERED: diphenhydrAMINE 25mg capsule PO PRN (08:25)
[2024-09-04] MEDS ORDERED: ALPRAZolam 0.25mg tablet PO PRN (08:25)
[2024-09-04] MEDS ORDERED: magnesium sulf-water 2g/50mL 50 ML IV PRN (08:25)
[2024-09-04] MEDS ORDERED: potassium Cl 20mEq/100mL bag 100 ML IV PRN (08:25)
[2024-09-04] MEDS ORDERED: potassium Cl 40MEQ/270ML bag 250 ML IV PRN (08:25)
[2024-09-04] MEDS: normal saline 1000ml 1,000 ML IV SCH (08:25)
[2024-09-04] MEDS ORDERED: pantoprazole 40mg Tablet.DR PO PRN (08:25)
[2024-09-04] MEDS ORDERED: LIDOcaine 1% W/epiNEPHrine 1:100,000 20ml vial ONE (11:28)
[2024-09-04] MEDS: meperidine/PF 25mg/ml syringe IV PRN (12:30)
[2024-09-04] MEDS: acetaminophen 1,000mg/100ml IV 100 ML IV ONE (12:49)
[2024-09-04] MEDS: sod chloride 0.9% 10ml flush syringe IV SCH (16:00)
[2024-09-04] MEDS: ceFAZolin 1GM/D5W- ADD-VANTAGE 50 ML IV SCH (16:24)
[2024-09-04] MEDS: vancomycin/NS 1 GM ADD-VANTAGE 250 ML IV SCH (20:25)
[2024-09-05 02:00] VITALS: BP 107/66; PULSE 82; RESP 18; TEMP 97.3; O2SAT 94
[2024-09-05 06:00] VITALS: BP 111/70; PULSE 84; RESP 14; TEMP 98.1; O2SAT 95
[2024-09-05 06:38] LABS: BASOPHILS % (AUTO) 0 % (0-1); EOSINOPHILS % (AUTO) 0 % (0-6); HEMATOCRIT 37.6 % (42.0-52.0); HEMOGLOBIN 12.7 g/dl (14.0-17.9); LYMPHOCYTES # (AUTO) 1.1 X10'3 (1.1-4.8); LYMPHOCYTES % (AUTO) 8.1 % (21-51); MEAN CORPUSCULAR HGB CONC 33.8 g/dL (33.0-36.5); MEAN CORPUSCULAR VOLUME 88.7 FL (78-98); MEAN PLATELET VOLUME 8.6 FL (7.4-10.4); MONOCYTES # (AUTO) 0.9 X10'3 (0-0.9); MONOCYTES % (AUTO) 6.5 % (2-12); NEUTROPHILS # (AUTO) 11.5 X10'3 (1.8-7.7); NEUTROPHILS % (AUTO) 85.4 % (42-75); PLATELET COUNT 208 X10'3 (140-440); RED BLOOD COUNT 4.24 X10'6 (4.70-6.10); RED CELL DISTRIBUTION WIDTH 13.5 % (11.5-14.5); WHITE BLOOD COUNT 13.5 X10'3 (4.5-11.0)
[2024-09-05 06:47] LABS: PROTHROMBIN TIME 10.9 SECONDS (9.0-12.0)
[2024-09-05 07:10] LABS: ALANINE AMINOTRANSFERASE 29 U/L (12-78); ALBUMIN 3.3 G/DL (3.4-5.0); ALBUMIN/GLOBULIN RATIO 1.2 (1.1-1.5); ALKALINE PHOSPHATASE 48 IU/L (46-116); ANION GAP 5 (8-16); ASPARTATE AMINO TRANSFERASE 15 U/L (10-37); BILIRUBIN,TOTAL 0.5 MG/DL (0.1-1.0); BLOOD UREA NITROGEN 16 MG/DL (7-18); BUN/CREATININE RATIO 17.8 (10.0-20.0); CALCIUM 9.7 MG/DL (8.5-10.1); CHLORIDE 107 MMOL/L (99-107); GLUCOSE 117 MG/DL (70-104); MAGNESIUM 2.1 MG/DL (1.5-2.4); POTASSIUM 4.1 MMOL/L (3.5-5.1); PRO BRAIN NATRIURETIC PEPTIDE 181 PG/ML (0-125); SODIUM 139 MMOL/L (135-145); TOTAL CARBON DIOXIDE 26.7 MMOL/L (24-32); TOTAL PROTEIN 6.1 G/DL (6.4-8.2); eCRCL 87 ML/MIN; eGFR 84 ML/MIN
[2024-09-05 11:00] VITALS: BP 115/72; PULSE 85; RESP 15; TEMP 98.1; O2SAT 98
[2024-09-05] MEDS: fluticasone nasal spray 16GM bottle NS SCH (14:07)
[2024-09-05] MEDS: clopidogrel 75mg tablet PO SCH (14:08)
[2024-09-05] MEDS: aspirin 81mg, enteric-coated 1 TAB TABLET.DR PO SCH (14:08)
[2024-09-05] MEDS: HYDROchlorothiazide 12.5mg capsule PO SCH (14:08)
[2024-09-05 14:10] VITALS: BP_SYST 115
[2024-09-05] MEDS: atorvastatin 20mg tablet PO SCH (14:10)
[2024-09-05] MEDS: losartan 50mg tablet PO SCH (14:10)
[2024-09-05] MEDS ORDERED: traMADol 50MG tablet PO SCH ×2 (20:00)
[2024-09-06] MEDS ORDERED: [UNRECOGNIZED DRUG - OTHER] PO SCH (08:00)
[2024-09-06] MEDS ORDERED: OLMESARTAN PO SCH (08:00)
[2024-09-06] MEDS ORDERED: atorvastatin 20mg tablet PO SCH (08:00)
[2024-09-06] MEDS ORDERED: HYDROCHLOROTHIAZIDE PO SCH (08:00)
== END 2024-09-05 14:23 | disposition home or self-care (01) | DRG 274 ==
LOC: PAS IN 05:27 → EDSTATUS 07:30 → PCU 3S 18:30
PROVIDERS: ADMIT Student in an Organized Health Care Education/Training Program; ATTEND Student in an Organized Health Care Education/Training Program
PROC: 03HY32Z Insertion of Monitoring Device into Upper Artery, Percutaneous Approach (ICD-10-PCS; 2024-09-04)
PROC: B24BZZ4 Ultrasonography of Heart with Aorta, Transesophageal (ICD-10-PCS; 2024-09-04)
PROC: 02L73DK Occlusion of Left Atrial Appendage with Intraluminal Device, Percutaneous Approach (ICD-10-PCS; principal; 2024-09-04 07:08)
DX: I48.0 Paroxysmal atrial fibrillation (principal); Z00.6 Encounter for examination for normal comparison and control in clinical research program; I48.3 Typical atrial flutter; Z87.891 Personal history of nicotine dependence
CPT/HCPCS: 33340; 36415; 71045; 71046; 76937; 80053; 81003; 82948; 83735; 83880; 85025; 85347; 85610; 85730; 86885; 86900; 86901; 86920; 87081; 93005; 93308; 93312; 93325; A4615; A4618; A6258; A6449; C1760; C1889; C1893; C1894; G0378; J0131; J0690; J1100; J1644; J2175; J2250; J2405; J2704; J3010; J3370; J3490; J7040; J7120; Q9967